=== PATIENT | male | born 1960 | race Hispanic/Latino ===

== ENCOUNTER 2018-03-21 15:35 | Emergency (ER) | payer BC, MEDICAID, OTHER ==
--- NOTE | 2018-03-21 17:19 | C.PDOC ---
History Of Present Illness 57 y/o male presents to the ER requesting detox from ETOH. Patient states that he was recently evaluated at [facility] for detox and he was referred to a location in [place]. Patient think that [place] is "bad place" for him so he decided to come to [facility] ER. He notes that he does heavy drinking and he last drank 1 hour ago. Denies having active physical complaints. Denies any SI/ HI. Time Seen by Provider: 03/21/18 16:21 Chief Complaint (Nursing): Substance Abuse History Per: Patient History/Exam Limitations: no limitations Past Medical History Reviewed: Historical Data, Nursing Documentation, Vital Signs Vital Signs: Last Vital Signs Temp 98 F 03/21/18 15:56 Pulse 87 03/21/18 15:56 Resp 16 03/21/18 15:56 BP 118/83 03/21/18 15:56 Pulse Ox 97 03/21/18 17:29 - Medical History PMH: Denies: Diabetes, Hepatitis, HIV, HTN, Chronic Kidney Disease, Seizures, Sexually Transmitted Disease Other Surgeries: Hx of surgeries - [facility] Procedures DETOXIFICATION SERVICES FOR SUBSTANCE ABUSE TREATMENT (07/15/16) INDIV KITCHEN CHEF FOR SUBSTANCE ABUSE TREATMENT, COGNITIVE (05/24/15) INDIV PSYCHOTHERAPY FOR SUBSTANCE ABUSE TREATMENT, SUPPORT (07/15/16) INDIV PSYCHOTHERAPY FOR SUBSTANCE ABUSE, COGNITIV BEHAVIORAL (07/15/16) Family History: States: No Known Family Hx - Social History Hx Tobacco Use: Yes (some days) Hx Alcohol Use: Yes Hx Substance Use: No - Immunization History Hx Tetanus Toxoid Vaccination: No Hx Influenza Vaccination: No Hx Pneumococcal Vaccination: No Review Of Systems Except As Marked, All Systems Reviewed And Found Negative. Constitutional: Negative for: Fever, Chills Physical Exam - Physical Exam Appears: No Acute Distress Skin: Normal Color, Warm, Dry Head: Atraumatic, Normacephalic Eye(s): bilateral: Normal Inspection Nose: Normal Oral Mucosa: Moist Neck: Supple Chest: Symmetrical Cardiovascular: Rhythm Regular Respiratory: Normal Breath Sounds, No Rales, No Rhonchi, No Wheezing Gastrointestinal/Abdominal: Normal Exam, Soft, No Tenderness, No Guarding, No Rebound Neurological/Psych: Oriented x3, Normal Speech ED Course And Treatment O2 Sat by Pulse Oximetry: 97 (RA) Pulse Ox Interpretation: Normal Progress Note: Patient seen by community health worker. there are currently no detox beds available. He was placed on the list and given info about pre-screening and additional resources for other detox centers. Medical Decision Making Medical Decision Making: Plan: --1:1 Observation Disposition - Disposition Disposition: HOME/ ROUTINE Disposition Time: 18:04 Condition: STABLE Instructions: Alcohol Abuse and Alcoholism (DC) Forms: [employer] (Greek) - Clinical Impression Clinical Impression: Alcohol dependence - Scribe Statement The provider has reviewed the documentation as recorded by the Brandyibe Hamida Ryan Provider Attestation: All medical record entries made by the Scribe were at my direction and personally dictated by me. I have reviewed the chart and agree that the record accurately reflects my personal performance of the history, physical exam, medical decision making, and the department course for this patient. I have also personally directed, reviewed, and agree with the discharge instructions and disposition.
[2018-03-21 18:20] VITALS: BP 138/75; PULSE 86; RESP 18; TEMP 97.6; O2SAT 96
== END 2018-03-21 18:16 | disposition home or self-care (01) ==
LOC: C.ER 15:35
DX: F10.20 Alcohol dependence, uncomplicated (principal); Y90.9 Presence of alcohol in blood, level not specified

== ENCOUNTER 2018-06-04 07:14 | Emergency (ER) | payer BC ==
[2018-06-04 07:22] VITALS: TEMP 98.5
[2018-06-04] MEDS ORDERED: Amoxicillin-Clav 875-125 mg Tab PO STA (08:25)
--- NOTE | 2018-06-04 08:25 | C.PDOC ---
History Of Present Illness 58 years old male presents to ED for complaints of right ear pain, swelling and itching associated with slight fever that began 2 days ago. Patient states "I think something bit me and it got infected." Patient reports symptoms worsened today with more muffled hearing which prompted the ED visit. Denies neck pain, jaw pain, chills, or allergies to any medications. Time Seen by Provider: 06/04/18 07:55 Chief Complaint (Nursing): ENT Problem History Per: Patient History/Exam Limitations: no limitations Onset/Duration Of Symptoms: Days (2) Current Symptoms Are (Timing): Still Present Location Of Injury: Right: Head (EAR) Quality Of Symptoms: Painful, Itching, Swollen. denies: Draining Recent travel outside of the [place]: No Past Medical History Reviewed: Historical Data, Nursing Documentation, Vital Signs Vital Signs: Last Vital Signs Temp 98.5 F 06/04/18 07:19 Pulse 106 H 06/04/18 07:19 Resp 18 06/04/18 07:19 BP 130/96 H 06/04/18 07:19 Pulse Ox 97 06/04/18 07:19 - Medical History PMH: No Chronic Diseases - [facility] Procedures DETOXIFICATION SERVICES FOR SUBSTANCE ABUSE TREATMENT (03/27/18) GROUP CUSTOM CLOTHIER FOR SUBSTANCE ABUSE TREATMENT, PSYCHOEDUCATION (03/27/18) GROUP CUSTOM CLOTHIER FOR SUBSTANCE ABUSE, COGNITIVE BEHAVIORAL (03/27/18) GROUP PSYCHOTHERAPY (03/27/18) INDIV CUSTOM CLOTHIER FOR SUBSTANCE ABUSE TREATMENT, COGNITIVE (05/24/15) INDIV PSYCHOTHERAPY FOR SUBSTANCE ABUSE TREATMENT, SUPPORT (03/27/18) INDIV PSYCHOTHERAPY FOR SUBSTANCE ABUSE, COGNITIV BEHAVIORAL (03/27/18) INDIV PSYCHOTHERAPY FOR SUBSTANCE ABUSE, PSYCHOEDUCATION (03/27/18) INDIVIDUAL PSYCHOTHERAPY, COGNITIVE-BEHAVIORAL (03/27/18) INDIVIDUAL PSYCHOTHERAPY, SUPPORTIVE (03/27/18) Family History: States: Unknown Family Hx - Social History Hx Tobacco Use: Yes (some days) Hx Alcohol Use: No Hx Substance Use: No - Immunization History Hx Tetanus Toxoid Vaccination: No Hx Influenza Vaccination: Yes Hx Pneumococcal Vaccination: No Review Of Systems Constitutional: Positive for: Fever. Negative for: Chills ENT: Positive for: Ear Pain, Other (Ear swelling and itchiness ). Negative for: Ear Discharge Gastrointestinal: Negative for: Nausea, Vomiting Musculoskeletal: Negative for: Neck Pain Skin: Negative for: Rash Neurological: Negative for: Weakness, Numbness Physical Exam - Physical Exam Appears: Non-toxic, No Acute Distress Skin: Normal Color, Warm, Dry, No Rash Head: Atraumatic, Normacephalic Eye(s): bilateral: Normal Inspection, PERRL, EOMI Ear(s): Right: Other (Inner and outer ear lobe tenderness and moderate swelling. No abscess. ) Oral Mucosa: Moist Throat: Normal, No Erythema, No Exudate, No Drooling, No Mass Neck: Normal ROM, Supple Lymphatic: Normal Exam Chest: Symmetrical Cardiovascular: Rhythm Regular, No Friction Rub, No Murmur Respiratory: Normal Breath Sounds, No Rales, No Rhonchi, No Wheezing Extremity: Normal ROM, No Swelling Extremity: Bilateral: Atraumatic, Normal Color And Temperature, Normal ROM Pulses: Left Radial: Normal, Right Radial: Normal Neurological/Psych: Oriented x3, Normal Speech Gait: Steady ED Course And Treatment O2 Sat by Pulse Oximetry: 97 (RA) Pulse Ox Interpretation: Normal Medical Decision Making Medical Decision Making: Plan: * Augmentin Disposition - Disposition Referrals: Slick Fernandes MD [Staff Provider] - Disposition: HOME/ ROUTINE Disposition Time: 09:03 Condition: STABLE Additional Instructions: Wash the ear twice a day with soap and water. 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 - Scribe Statement The provider has reviewed the documentation as recorded by the Brandyibe Brijesh Sanchez All medical record entries made by the Brandyibjaja were at my direction and personally dictated by me. I have reviewed the chart and agree that the record accurately reflects my personal performance of the history, physical exam, medical decision making, and the department course for this patient. I have also personally directed, reviewed, and agree with the discharge instructions and disposition.
[2018-06-04] MEDS ORDERED: Amoxicillin-Clav 875-125 mg Tab PO ONE (08:30)
[2018-06-04 09:17] VITALS: BP 123/86; PULSE 86; RESP 19; O2SAT 98
== END 2018-06-04 09:15 | disposition home or self-care (01) ==
LOC: C.ER 07:14
DX: H60.11 Cellulitis of right external ear (principal); F17.200 Nicotine dependence, unspecified, uncomplicated